=== PATIENT | male | born 1985 | race Caucasian/White ===

== ENCOUNTER 2021-11-12 13:52 | Outpatient (REF) | payer OTHER, SELFPAY ==
[2021-11-15 12:36] LABS: SARS COV2 IgG NEGATIVE
== END 2021-11-12 13:53 | disposition home or self-care (01) ==
LOC: HO.MANLDS 13:52
PROVIDERS: PCP Physician Assistant; Visit Provider Physician Assistant
DX: Z20.822 Contact with and (suspected) exposure to COVID-19 (principal); R53.83 Other fatigue
CPT/HCPCS: 36415; 86769

== ENCOUNTER 2023-10-02 15:58 | Outpatient (REF) | payer OTHER, SELFPAY ==
[2023-10-02 17:54] LABS: Appearance Urine Clear; Color Urine Yellow; Glucose Urine UA Negative (Negative); Leukocyte Esterase Urine Negative (Negative); Nitrite Urine Negative (Negative); Specific Gravity - Urine <= 1.005 (1.005-1.025); Urine Blood Negative (Negative); Urine Ketones Negative (Negative); Urine Protein Negative (Neg-Trace)
== END 2023-10-02 15:59 | disposition home or self-care (01) ==
LOC: HO.MANLNP 15:58
PROVIDERS: Visit Provider Physician Assistant
DX: R30.0 Dysuria (principal)
CPT/HCPCS: 81003

== ENCOUNTER 2024-12-06 11:31 | Outpatient (REF) | payer OTHER, SELFPAY ==
--- OUTSIDE RECORDS SUMMARY | 2024-12-06 12:18 | XMS_ITS | Data Portability ---
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) MDM MODERATE MUST MEET 2 OUT OF 3 ELEMENTS: PROBLEMS, DATA OR RISK ELEMENT 1: PROBLEMS ADDRESSED 1 OR MORE CHRONIC ILLNESS WITH EXACERBATION OR 2 OR MORE STABLE CHRONIC ILLNESSES OR 1 UNDIAGNOSED NEW PROBLEM OR 1 ACUTE ILLNESS W/SYMPTOMS OR 1 ACUTE COMPLICATED INJURY ELEMENT 2: DATA MUST MEET 1 OF 3 CATEGORIES CATEGORY 1: REVIEW OF PRIOR EXTERNAL NOTES, REVIEW OF RESULTS, ORDERING OF EACH TEST, ASSESSMENT REQUIRING INDEPENDENT HISTORIAN OR CATEGORY 2: INDEPENDENT INTERPRETATION OF TESTS BY ANOTHER PHYSICIAN OR SPECIALIST OR CATEGORY 3: DISCUSSION OF MGT OR TEST INTERPRETATION W/EXTERNAL PHYSICIAN OR SPECIALIST ELEMENT 3: RISK RISK OF COMPLICATIONS AND/OR MORBIDITY OR MORTALITY OF PATIENT MANAGEMENT PROVIDER MUST THOROUGHLY DOCUMENT EACH ELEMENT THAT IS COVERED [email or web address] Not available 11/22/2024 16:03:30 Plan of Treatment Reminders Order Date Submit Date Provider Last Modified By Organization Details Last Modified Time Details Appointments ANNUAL EXAM 2025 09:30A M ELEAZAR KELLEY Not available Not available Not available Lab calprotec tin, stool 2024 025 ATHENAX [facility] (Outpatient), [address] [place] [address], [id number], 08/07/2024 09:26:36 CMP, serum or plasma 2024 025 [facility] (Outpatient), [address] [place] [address], [address], 08/07/2024 09:26:36 CBC w/ auto diff 2024 025 [facility] (Outpatient), [address] [place] [address], [address], 08/07/2024 12:20:00 C-reactiv e protein, quantitat lukas, serum or plasma 2024 025 [facility] (Outpatient), [address] [place] [address], [address], 08/07/2024 09:26:36 ESR (erythroc yte sedimenta tion rate), blood 2024 025 [facility] (Outpatient), [address] [place] [address], [address], 08/07/2024 12:23:01 gamma-glu tamyl transfera se (ggt), serum 2024 025 [facility] (Outpatient), [address] [place] [address], [address], 08/07/2024 09:26:36 iron + TIBC + ferritin, serum 2024 025 [facility] (Outpatient), [address] [place] [address], [address], 08/07/2024 09:26:36 amylase + lipase, serum 2024 025 [facility] (Outpatient), [address] [place] [address], [address], 08/07/2024 09:26:36 PTH (parathyr oid hormone), intact + calcium, serum or plasma 2024 025 [facility], [address] [place], [address], 08/30/2024 13:42:16 O&P (ova & parasites ), stool 2024 025 [facility], [address] [place], [address], 08/30/2024 13:41:06 magnesium , serum or plasma 2024 025 [facility] (Outpatient), [address] [place] [address], [address], 08/07/2024 09:26:36 TSH + free T4, serum 2024 025 [facility] (Outpatient), [address] [place] [address], [address], 08/07/2024 09:26:36 urinalysi s, dipstick [address] [facility], [address] [facility], [address], [place], [address], 10/02/2023 15:52:55 urinalysi s complete, reflex culture 2023 024 [facility], [address] [facility], [place], [address], 10/03/2023 11:35:58 CMP, serum or plasma 2023 024 [facility] (Outpatient), [address] [place] [address], [address], 08/11/2023 08:17:57 lipid panel, blood 2023 024 [facility] (Outpatient), [address] [place] [address], [address], 08/11/2023 08:17:57 CBC w/ auto diff 2023 024 [facility] (Outpatient), [address] [place], [address], 08/11/2023 08:17:57 hemoglobi n A1c, QN, blood 2023 024 [facility] (Outpatient), [address] [place], [address], 08/11/2023 08:17:57 vitamin D, 25-hydrox y, total, serum 2023 024 [facility] (Outpatient), [address] [place], [address], 08/11/2023 08:17:58 uric acid, serum or plasma 2022 023 [facility] (Outpatient), [address] [place], [address], 06/24/2023 15:00:06 Referral orthopedi c surgeon referral 2023 024 [facility] Asaf Hurst MD, [address], [address], [place], [address], 08/07/2023 08:58:19 Procedures None recorded. Surgeries None recorded. Imaging event monitor 2024 025 [facility], [address] [facility] [address], [place], [address], 12/02/2024 14:53:10 XR, shoulder, 2 or more view 2024 025 [facility] Central Scheduling (Not Breast), [address] [place], [address], 08/07/2024 22:54:41 holter monitor - Pt would like Sophia location 2024 025 [facility] Vascular, [address], [address], [place], [address], 09/02/2024 08:29:48 LDCT, chest, for lung cancer screening - 20 + year of smoking, current smoker, down to one to two cigarette s per day, was a half a pack to a full pack a day smoker 2024 025 [email or web address] [facility] Radiology Central Scheduling, [address], [place], [address], 09/02/2024 10:04:18 XR, kidney + ureter + bladder 2023 024 Not available 10/03/2023 13:45:05 CT, chest, w/o contrast 2022 023 [email or web address] Not available 06/30/2023 10:09:29 PFT, complete 2022 023 [email or web address] Not available 07/07/2023 08:10:16 XR, foot, 3 or more view 2022 023 CLARENCE Not available 06/25/2023 12:53:04 Medication Orders Cipro 500 mg tablet [address] [facility], [address] [facility], [place], [address], 08/07/2024 08:36:00 Patient TargetsNo targets recorded. Patient Instructions Encounter Date Encounter Id Patient Instructions Last Modified By Organization Details Last Modified Time 08/04/2023 [id number] smoking cessatio n counseling, greater than 3 minutes up to 10 minutes* [email or web address] Not available 08/11/2023 08:16:34 Reason for Referral Orthopedic Surgeon Referral for Pain in left foot plantar fasciitis Referring Physician: Luda Campbell, Internal Medicine, Encounter Date: 08/04/2023 Results Created Date Observation Date Name Description Value Unit Range Abnormal Flag Note LastModifiedBy Organization Detail LastModifiedTime 10/02/19 24 10/02/2023 urina lysis , dipst ick Leukocytes Small Not Available [facility] [address] [facility] [address], [place], [address], 10/02/2023 15:37:13 10/02/19 24 10/02/2023 urina lysis , dipst ick Nitrite negati ve Not Available [facility] [address] [facility] [address], [place], [address], 10/02/2023 15:37:13 10/02/19 24 10/02/2023 urina lysis , dipst ick Urobilinogen [address] [facility] [address] [facility] [address], [place], [address], 10/02/2023 15:37:13 10/02/19 24 10/02/2023 urina lysis , dipst ick Protein Negati ve Not Available [facility] [address] [facility] [address], [place], [address], 10/02/2023 15:37:13 10/02/19 24 10/02/2023 urina lysis , dipst ick pH 6.5 Not Available [facility] [address] [facility] [address], [place], [address], 10/02/2023 15:37:13 10/02/19 24 10/02/2023 urina lysis , dipst ick Blood Negati ve Not Available [facility] Internal [facility] [address] [facility] [address], [place], [address], 10/02/2023 15:37:13 10/02/19 24 10/02/2023 urina lysis , dipst ick Specific [place] 1.010 Not Available [facility] [address] [facility] [address], [place], [address], 10/02/2023 15:37:13 10/02/19 24 10/02/2023 urina lysis , dipst ick Ketone Negati ve Not Available [facility] [address] [facility] [address], [place], [address], 10/02/2023 15:37:13 10/02/19 24 10/02/2023 urina lysis , dipst ick Bilirubin Negati ve Not Available [facility] [address] [facility] [address], [place], [address], 10/02/2023 15:37:13 10/02/19 24 10/02/2023 urina lysis , dipst ick Glucose Negati ve Not Available [facility] [address] [facility] [address], [place], [address], 10/02/2023 15:37:13 10/02/19 24 10/02/2023 urina lysis , dipst ick Appearance Clear Not Available [facility] [address] [facility] [address], [place], [address], 10/02/2023 15:37:13 10/02/19 24 10/02/2023 urina lysis , dipst ick Color Pale Yellow Not Available [facility] Internal [facility] [address] [facility] [address] [address], [place], [address], 10/02/2023 15:37:13 06/14/20 23 11/04/2018 jaxon r monit or No observ ation record ed. [email or web address] Not Available 2022 11:24:16 06/25/20 23 06/24/2023 XR, foot, 3 or more view No observ ation record ed. [email or web address] [address], [address], 07/04/2023 08:41:25 08/10/19 24 08/10/2023 PFT, compl ete No observ ation record ed. [email or web address] [facility] (Genetics) [address] [place] [address], [address], 08/11/2023 08:38:12 08/11/19 24 08/10/2023 PFT, compl ete No observ ation record ed. [email or web address] [facility] [address] [facility] [address] [address], [place], [address], 08/11/2023 13:45:14 08/11/19 24 08/10/2023 CT, chest , w/o contr ast No observ ation record ed. [email or web address] [facility] [address] [place], [address], 08/11/2023 13:45:15 10/03/19 24 10/02/2023 XR, kidne y + urete r + bladd er No observ ation record ed. [address], [address], 08/07/2024 09:32:21 10/08/19 24 10/07/2023 CT, abdom en + pelvi s, w/o contr ast No observ ation record ed. [address], [address], 08/07/2024 09:32:21 08/07/19 25 08/07/2024 XR, shoul hu, 2 or more view No observ ation record ed. [email or web address] [address], [place], [address], 08/09/2024 08:44:10 11/07/19 25 11/06/2024 XR, shoul hu, 2 or more view No observ ation record ed. [email or web address] [facility] (Med Rec) [address] [place], [address], 11/06/2024 15:43:28 Result Notes None recorded. Problems Name Problem SNOMED Code Status Onset Date Resolution Date Notes Provider Name and Address Organization Details Recorded Time Staphyloc occal infectiou s disease 66338724 Active 2018 LESTER Day [address] [facility], [place], [address], [facility] 9 15:07:33 Fracture of sternum 77448387 Active 2021 ELEAZAR KELLEY [address] [place], [address], [facility] 2 13:41:17 Fatigue 69567721 Active 2021 ELEAZAR KELLEY [address] [place], [address], [facility] 2 13:42:24 Bilateral tinnitus 697335444662 2 Active 2021 ELEAZAR KELLEY [address] [place] [address], [address], [facility] 2 13:44:49 Lyme disease 42488379 Active 2021 ELEAZAR KELLEY [address] [place] [address], [address], [facility] 2 08:51:04 Atypical chest pain 410715321 Active 2022 ELEAZAR KELLEY [address] [place] [address], [address], [facility] 3 15:00:01 COVID-19 468308041 Active 2022 ELEAZAR KELLEY [address] [place] [address], [address], [facility] 3 10:12:49 Pain of toe of right foot 701945352531 101 Active 2022 ELEAZAR KELLEY [address] [place] [address], [address], [facility] 3 11:20:21 Pain in left foot 200181565500 107 Active 2022 ELEAZAR KELLEY [address] [place] [address], [address], [facility] 3 11:20:42 Dysuria 46526490 Active 2023 ELEAZAR KELLEY [address] [place] [address], [address], [facility] 4 15:42:57 Kidney stone 84395314 Active 2023 ELEAZAR KELLEY [address] [place] [address], [address], [facility] 4 15:43:02 Staphyloc occal infection of skin 253407102 Active 2023 ELEAZAR KELLEY [address] [place] [address], [address], [facility] 4 13:30:05 External hemorrhoi ds 23938552 Active 2023 ELEAZAR KELLEY [address] [place] [address], [address], [facility] 4 09:44:10 Pain of left shoulder joint 976854025958 [address] Active 2024 Waldemar Kuhn DO [address] [place] [address], [address], [facility] 5 16:08:18 Smoker 29997376 Active 2024 ELEAZAR KELLEY [address] [place] [address], [address], [facility] 5 09:17:07 Diarrhea 14467227 Active 2024 ELEAZAR KELLEY [address] [place] [address], [address], [facility] 5 09:20:08 Chronic cough 96382529 Active 2024 ELEAZAR KELLEY [address] [place] [address], [address], [facility] 5 08:41:20 Intermitt ent palpitati ons 352488781 Active 2024 Waldemar Kuhn, [address] [place] [address], [address], [facility] 5 16:04:03 Tick bite 75461502 Active 2024 ELEAZAR KELLEY [address] [place] [address], [address], [facility] 5 10:46:00 Palpitati ons 83675576 [facility] 15:26:14 Hemorrhoi ds 06548667 Active 2017 [facility] 8 15:26:25 Problem Notes None recorded. Medical Equipment None Reported. Allergies Allergen ID Allergen Name Allergen Category Reaction Reaction Severity Criticality Documentation Date Start Date Code Code System Note Provider Name and Address Organization Details Recorded Time 3112 bacitraci n / neomycin / polymyxin B medicatio n Not available Not available Not available 12/14/2018 51694 9 RxNorm start s to look like staph , itchy , swell ing Maria T Isabel [facility] 9 15:16:48 5717 doxycycli ne Not available Not available Not available Not available 11/09/2021 3640 RxNorm Alaina Ruslan [facility] 2 14:42:00 797 Substance with sulfonami de structure and antibacte rial mechanism of action (substanc e) medicatio n Not available Not available Not available 10/05/2017 60351 8003 SNOMED Benita Mir NP, S [address] [place], [address], [facility] 8 14:12:03 Medications Name Sig Start Date Stop Date Status Note LastModified by Organization Details LastModified Time doxycycline hyclate 100 mg capsule Take 1 capsule twice a day by oral route for 14 days. 09/02 completed Not Available Not Available Not Available fluconazole 200 mg tablet Take 1 tablet every day by oral route. 12/14 completed Not Available Not Available Not Available clindamycin HCl 150 mg capsule Take 1 capsule 3 times a day by oral route for 7 days. 11/21 completed Not Available Not Available Not Available hydrocortis one acetate 25 mg rectal suppository Insert 1 supposito ry twice a day by rectal route for 14 days. 08/07 completed Not Available Not Available Not Available cephalexin 500 mg capsule Take 1 capsule every 6 hours by oral route for 10 days. 08/07 completed Not Available Not Available Not Available erythromyci n 5 mg/gram (0.5 %) eye ointment APPLY 1/2 INCH TO RIGHT EYE 4 TIMES A DAY FOR 5 DAYS 11/12 completed Not Available Not Available Not Available Cipro 500 mg tablet Take 1 tablet every 12 hours by oral route for 5 days. 08/07 completed Not Available Not Available Not Available mupirocin 2 % topical ointment APPLY A SMALL AMOUNT TO THE AFFECTED AREA BY TOPICAL ROUTE 3 TIMES PER DAY 08/07 completed Not Available Not Available Not Available finasteride 1 mg tablet TAKE 1 TABLET BY MOUTH ONCE DAILY 12/28 completed Not Available Not Available Not Available amoxicillin 875 mg-potassiu m clavulanate 125 mg tablet 12/01 completed Not Available Not Available Not Available Vitals Date Recorded Body height Body mass index (BMI) Body weight Heart rate Oxygen saturation Oxygen saturation in Arterial blood by Pulse oximetry Systolic blood pressure Diastolic blood pressure Provider Name and Address Organization Details Last Updated DateTime 4 177.8 cm 22.7 kg/m2 86592.5 9 g 80 /min 97 % 97 % 110 mm[Hg] 80 mm[Hg] Natacha Chung [facility] 4 14:04:58 Date Recorded Body height Body mass index (BMI) Body weight Heart rate Oxygen saturation Oxygen saturation in Arterial blood by Pulse oximetry Systolic blood pressure Diastolic blood pressure Provider Name and Address Organization Details Last Updated DateTime 5 177.8 cm 22.3 kg/m2 69922.5 4 g 79 /min 99 % 99 % 112 mm[Hg] 68 mm[Hg] Praveena Sun [facility] 5 08:57:44 Date Recorded Body height Body mass index (BMI) Body weight Heart rate Oxygen saturation Oxygen saturation in Arterial blood by Pulse oximetry Systolic blood pressure Diastolic blood pressure Provider Name and Address Organization Details Last Updated DateTime 4 177.8 cm 22.7 kg/m2 25480.5 9 g 85 /min 97 % 97 % 108 mm[Hg] 74 mm[Hg] Natacha Chung [facility] 4 15:37:24 Date Recorded Body height Body mass index (BMI) Body weight Heart rate Oxygen saturation Oxygen saturation in Arterial blood by Pulse oximetry Systolic blood pressure Diastolic blood pressure Provider Name and Address Organization Details Last Updated DateTime 5 177.8 cm 22.1 kg/m2 87382.2 2 g 74 /min 98 % 98 % 102 mm[Hg] 64 mm[Hg] Sherine Segura [facility] 5 15:36:39 Social History Question Answer Notes LastModified by Organizat ion Details LastModified Time Tobacco Smoking Status Former Smoker 1-2/[facility] 11/22/2024 15:32:16 What Was The Date Of Your Most Recent Tobacco Screening? 10/02/2023 [email or web address] Information not available 10/02/2023 Sex: Unknown Functional Status Question Answer Note LastModified by Organization D etails LastModified Time Do you or have you ever used any other forms of tobacco or nicotine? No [email or web address] Information not available 11/12/2021 Mental Status None recorded. Family History Nothing Reported. Medical History No medical history recorded. Past Encounters Encounter ID Performer Location Encounter Start Date Encounter Closed Date Diagnosis/Indication Diagnosis SNOMED-CT Code Diagnosis ICD10 Code Diagnosis Note [id number] Benita Mir NP, S [facility] [address] [facility],[place] [address] 10/06/2017 09:01:44 10/06/2017 10:15:16 Transgender identity [id number] 0184788 F64.0 refer to endocrinol ogy for HRT pt [facility] , awaiting session has friends and aquaintanc es who have gone through surgery +/or are transgende red and feels comfortabl e with decision [id number] Waldemar Kuhn DO [facility] [address] [facility],[place] [address] 11/10/2017 15:42:40 11/10/2017 16:29:13 Dog bite of hand 066107169 S61.452D sutures not ready for removal, keep area clean, dry. D/C use latex covering. return Monday for re-evaluat ion [id number] Waldemar Ryne Kuhn [facility] [address] [facility], [place] [address] 11/13/2017 16:20:52 11/13/2017 17:18:00 Dog bite of hand 052027721 S61.452D sutures ready for removal, removed 7 sutures without difficulty , small area not completely approximat ed, edges with granulatio n tissue. 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,[place] [address] 12/14/2018 15:08:23 12/14/2018 15:59:51 Laceration of skin 243054016 T14.8XXA Cellulitis 412569676 L03 .90 [id number] Waldemar Kuhn [facility] [address] [facility], [place] [address] 12/21/2018 14:53:27 12/21/2018 16:28:55 Cellulitis 853109229 L03.90 resolved Removal of suture 841067 01 Z48.02 suture removal tolerated no complicati ons Laceration of skin 84554 5007 T14.8XXA left xavier keep clean and cover if going out [id number] Waldemar Kuhn [facility] [address] [facility],[place] [address] 04/01/2019 14:34:03 04/01/2019 15:54:41 Staphylococcal infection of skin 291572765 B95.8 h/o staph Acute folliculitis 85454 7007 L73.9 h/o staph [id number] Waldemar Kuhn [facility] [address],[place] [address] 12/28/2020 13:28:50 12/28/2020 13:58:24 Active or passive immunization 372687245 Z23 is getting the j&j Adult heal th examination 598361339 Z00.00 BP excellentw ill give labs for fu Multiple b enign melanocytic nevi 180306477 D22.9 sent to derm Tinnitus 63327659 H93.13 sent to audiology for re-eval of hearing and tinnitus Ex-smoker 4544971 Z87.89 1 will check lungs [id number] Waldemar Kuhn [facility] [address] [facility],[place] [address] 11/12/2021 13:33:16 11/12/2021 15:34:42 Fracture of sternum 62333369 S22.20XA will recheck sternum with another CT Fatigue 50161083 R53.83 will recheck COVID Tick bite 09815228 W57.X XXA will fu with testing Bilateral tinnitus 89641 02868 102 H93.13 will fu with another audiology [id number] Waldemar Kuhn [facility] [address] [facility],[place] [address] 11/21/2022 14:23:33 11/21/2022 15:11:54 Atypical chest pain 729455876 R07.89 resolved Tobacco user 542765001 Z 72.0 discussed quittingpt is doing okay on his own [id number] Waldemar Kuhn [facility] [address] [facility] [address] [address] 03/31/2023 09:55:13 03/31/2023 13:34:58 COVID-19 345602171 U07.1 will set up with SARS AB Palpitations 79677142 R0 0.2 will set up with lab work as well as holter Trying to conceive 43996 9001 Z31.41 agreed to semen analysis [id number] Waldemar Kuhn [facility] [address] [facility] [address] [address] 06/23/2023 08:28:17 06/23/2023 11:50:23 Pain in left foot 8604036320 74479 M79.672 d/d/x gout vs bone spur vs arthritis Occupation al exposure to toxic dust 076028972 Z57.2 will [address] up with CT and PFT [id number] Waldemar Kuhn [facility] [facility] [address] [facility] [address] [address] 08/04/2023 14:01:07 08/04/2023 14:45:28 Tobacco user [id number] Z72.0 discussed quittingpt is doing okay on his own Adult heal th examination 342962906 Z00.00 BP excellentw ill give labs for f/u Pain in left foot [id number] 1796 81542 M79.672 will set up with ortho [id number] Waldemar Kuhn [facility] [address] [facility] [address] [place] [address] 10/02/2023 15:26:14 10/03/2023 13:45:05 Dysuria [id number] R30.0 will set up with Kidney stone [id number] N2 0.0 will set up XR KUB [id number] Waldemar Kuhn [facility] [address] [facility] [address] [address] 08/07/2024 08:49:51 08/07/2024 10:47:48 Active or passive immunization [id number] Z23 is getting the j&j Adult heal th examination 903335761 Z00.00 BP excellentw ill give labs for f/u Depression screening 171 831214 Z13.31 SCREENING NEGATIVE Pain of le ft shoulder joint [id number] M25.512 agreed to XR L Shoulder Smoker 23463919 F17.200 will set up with screening CT Palpitations 64240732 R0 0.2 will set up with holter monitor Diarrhea 34050041 R19.7 lab work, stool sampling [id number] Waldemar Kuhn DO [facility] [address] [facility],[address] [address] 11/22/2024 15:26:04 11/22/2024 16:14:47 Intermittent palpitations 810990723 R00.2 Pain of le ft shoulder joint [id number] 0581098 M25.512 Health Concerns Section Related Observation LastModified by Organization Detai ls LastModified Time None Recorded Concern Status LastModified by Organization Details LastModified Time None Recorded Advance Directives Directive None Recorded Payers Encounter Date Sequence Insurance Name Policy Number Policy Murillo Covered Member ID Murillo Member ID Guarantor Name 06/23/2023 1 [facility] [id number] Gordo Orozco [facility] [id number] [facility] 08/04/[address] [place] [address] [id number] Gordo Orozco [facility] [id number] [facility] 10/02/[address] [place] [address] [id number] [facility] [id number] [facility] 08/07/2024 [address] [facility] [id number] [facility] 11/22/[address] [place] [address] [id number] [facility] Notes Date Note Type Note Provider Name and Address Organization Details Recorded Time 3 text/html holter results tele-med phone callpt consents to phone call the patient holter revealed run of SVT, the patient is having pain in the L big toe, happens when he steps on that area, sharp pain, no radiationno redness or swellingno obvious deformity discussed his results with the holterthe patient has a short run of SVTdiscussed what this means in the long rundeclined medication right now will f/u with CT and PFT testingh/x of dust and sheet rock dust will fu with patient after this is completed ELEAZAR KELLEY [address] [place], [address], [facility] 06/23/2023 11:35:24 4 text/html Annual WellnessReported bypatient.Diet and Nutrition:healthy diet; discussed vitamin and supplement use; discussed portion control; discussed maintaining calcium balance; discussed diet improvement Fracture Risk:no history of fractures; no recent explained fracture; no sudden unexplained fractures; no previous musculoskeletal injuries Physical Activity:exercises on a regular basis; recent increase in physical activity; good physical condition Additional Lifestyle Factors:tobacco use; drinks alcohol (mild-moderate); smokes about one cigarette per day and rolled tobacco per day Depression Risk:never feels sad, empty, or tearful; no loss of interest in activities; no significant changes in weight; no sleep disturbances or insomnia; no agitation; no loss of energy; no feelings of worthlessness or guilt; no thoughts of suicide; no history of depression; no history of mood disorders Hearing:no loss of hearing Vision:no vision problems ELEAZAR KELLEY [address] [place], [address], [facility] 08/04/2023 14:44:54 4 text/html c/o bilateral kidney pain the patient reports that he has increased urinary frequencythe patient reports that he also has bilateral kidney painno significant pain when urinatingno blood in the urineno discharge possible kidney stone ELEAZAR KELLEY [address] [place], [address], [facility] 10/02/2023 15:52:25 5 text/html Annual WellnessReported bypatient.Diet and Nutrition:healthy diet; discussed vitamin and supplement use; discussed portion control; discussed maintaining calcium balance; discussed diet improvement Fracture Risk:no history of fractures; no recent explained fracture; no sudden unexplained fractures; no previous musculoskeletal injuries Physical Activity:exercises on a regular basis; recent increase in physical activity; good physical condition Additional Lifestyle Factors:no tobacco use; no alcohol intake; stopped drinking alcohol Depression Risk:never feels sad, empty, or tearful; no loss of interest in activities; no significant changes in weight; no sleep disturbances or insomnia; no agitation; no loss of energy; no feelings of worthlessness or guilt; no thoughts of suicide; no history of depression; no history of mood disorders Hearing:no loss of hearing Vision:no vision problems L shoulder pain: the patient reports L shoulder painthe patient has crepitus, pain is along the anterior aspect of the shoulder joint, around the AC jointdoes do yoga, archery, very active, using his armsdid brace it, KT tape, NSAIDs, rest which helped but since he started activity again it has started againintermittent pain at it worst his ROM was limited by pain but otherwise he is able to get full ROM active and passivethe patient reports when it was really bad it did limit his ROM and activityno numbness or tingling into the hand or arm R hand dominant has phleboliths based on previous CT, still having some occasional pains with cloudy urine, resolves a bit when he drinks water the patient is still smoking one to two cigarettes, getting heart palpitationsthe patient reports it feels like a spasm anterior chest wall, gets worse with cigarettes and dustprobably more of a pulm response than a cardiac one all questions answered ELEAZAR KELLEY [address] [place], [address], [facility] 08/07/2024 09:32:47 5 text/html here for rechk of heart palpitationsstates that he has been under stress and also has been feeling some shoulder left discomfort with a lot of cracking note he quit smoking a week ago and has been smoking for 20 yrs with occ stoppagesno fam hx heart ds that he knows about Waldemar Kuhn DO [address] [place], [address], [facility] 11/22/2024 16:13:23
[2024-12-11 05:03] LABS: Lyme Abs Screen <0.90 index
== END 2024-12-06 11:32 | disposition home or self-care (01) ==
LOC: HO.MANLDS 11:31
PROVIDERS: Visit Provider Physician Assistant
DX: S00.96XA Insect bite (nonvenomous) of unspecified part of head, initial encounter (principal)
CPT/HCPCS: 36415; 86617; 86618